=== PATIENT | female | born 1990 | race Caucasian/White ===

== ENCOUNTER 2018-03-17 02:20 | Emergency (ER) | payer BC ==
[~2018-03-17] VITALS: Ht 165.1 cm; Wt 65.8 kg
[2018-03-17 02:20] VITALS: BP 126/66
[2018-03-17] MEDS ORDERED: LIDOCAINE 1% INJ 50 ML MDV IJ ONE (02:30)
[2018-03-17] MEDS ORDERED: BUPIVACAINE 0.5 % PF 150 MG/30 ML VIAL IJ ONE (02:30)
[2018-03-17] MEDS ORDERED: BUPIVACAINE 0.5 % PF 150 MG/30 ML VIAL ONE (02:31)
[2018-03-17] MEDS ORDERED: LIDOCAINE /MPF 1% VIAL 5 ML VIAL ONE (02:31)
== END 2018-03-17 03:52 | disposition home or self-care (01) ==
LOC: ER 02:29
DX: S91.201A Unspecified open wound of right great toe with damage to nail, initial encounter (principal); Z88.2 Allergy status to sulfonamides; Z88.8 Allergy status to other drugs, medicaments and biological substances; W18.49XA Other slipping, tripping and stumbling without falling, initial encounter; Y93.89 Activity, other specified; Y92.89 Other specified places as the place of occurrence of the external cause; Y99.8 Other external cause status
CPT/HCPCS: 73660-TC; A4606; A6402; J3490; Z7610